=== PATIENT | female | born 1965 | race Caucasian/White ===

== ENCOUNTER → 2022-03-30 | Outpatient (CLI) | payer BC ==
--- NOTE | 2022-04-06 10:35 | MM ---
Reason for Exam: Screening (asymptomatic). Last mammogram was performed 1 year(s) and 8 month(s) ago. Patient History: Menarche at age 13. First Full-Term at age 23. Postmenopausal. Risk Values: Tracie 5 year model risk: 1.4%. NCI Lifetime model risk: 7.8%. Prior Study Comparison: 05/26/2017 Bilateral MG screening mammo w CAD - 2, [facility]. 07/15/2020 Bilateral MG 3D screening mammo w/cad, [facility]. Tissue Density: The breast tissue is heterogeneously dense. This may lower the sensitivity of mammography. Findings: Analyzed By CAD. Occasional scattered benign-appearing round calcifications bilaterally. Benign-appearing left axillary lymph nodes are redemonstrated. There is no suspicious group of microcalcifications or new suspicious mass in either breast. Overall Assessment: Benign, BI-RAD 2 Management: Screening Mammogram of both breasts in 1 year. A clinical breast exam by your physician is recommended on an annual basis and results should be correlated with mammographic findings. Electronically signed and approved by: Farshad Wilburn M.D.
== END | disposition home or self-care (01) ==
LOC: RADMAMWWP 12:35
PROVIDERS: ATTEND Family Medicine
DX: Z12.31 Encounter for screening mammogram for malignant neoplasm of breast (principal); R92.1 Mammographic calcification found on diagnostic imaging of breast
CPT/HCPCS: 77063; 77067

== ENCOUNTER → 2023-11-17 | Outpatient (CLI) | payer BC ==
--- NOTE | 2023-11-17 14:48 | MM ---
Reason for Exam: Screening (asymptomatic). Last mammogram was performed 1 year(s) and 8 month(s) ago. Patient History: Menarche at age 13. First Full-Term at age 23. Postmenopausal. Patient has history of breast feeding. Risk Values: Tracie 5 year model risk: 1.5%. NCI Lifetime model risk: 7.4%. Prior Study Comparison: 05/26/2017 Bilateral MG screening mammo w CAD - 2, [facility]. 07/15/2020 Bilateral MG 3D screening mammo w/cad, [facility]. 03/30/2022 Bilateral MG 3D screening mammo w/cad, [facility]. Tissue Density: The breast tissue is heterogeneously dense. This may lower the sensitivity of mammography. Findings: Analyzed By CAD. There is no suspicious group of microcalcifications or new suspicious mass. Overall Assessment: Negative, BI-RAD 1 Management: Screening Mammogram of both breasts in [address] [facility] will attempt to contact patient to return for supplemental views and ultrasound if indicated. Patient should continue monthly self-breast exams. A clinical breast exam by your physician is recommended on an annual basis. This exam should not preclude additional follow-up of suspicious palpable abnormalities. Note on Tracie scores and lifetime risk: 1. A Tracie score greater than 3% is considered moderate risk. If this is the case, consider specialist referral to assess eligibility for a risk reducing agent. 2. If overall lifetime risk for the development of breast cancer is 20% or higher, the patient may qualify for future screening with alternating mammogram and breast MRI. Electronically signed and approved by: Dennis Booker DO
== END | disposition home or self-care (01) ==
LOC: RADMAMWWP 11:21
PROVIDERS: ATTEND Family Medicine
DX: Z12.31 Encounter for screening mammogram for malignant neoplasm of breast (principal); Z78.0 Asymptomatic menopausal state
CPT/HCPCS: 77063; 77067

== ENCOUNTER 2024-07-01 12:43 | Day surgery (SDC) | payer BC ==
[~2024-07-01 12:43] MED LIST: LIDOCAINE 1% (10MG/ML) FOR IV START INTRADERMA PRN
[2024-07-01 13:08] VITALS: RESP 16; TEMP 98.4
[2024-07-01] MEDS: IV FLUID CONTINUATION 1,000 ML IV ONE (13:09)
[2024-07-01] MEDS: LACTATED RINGERS 1,000 ML IV SCH (13:15)
[2024-07-01] MEDS: ONDANSETRON 4 MG/2 ML VIAL IVP STA (13:25)
[2024-07-01] MEDS ORDERED: PROPOFOL 10 MG/ML 20 ML VIAL IV ONE (15:45)
--- NOTE | 2024-07-01 16:06 | P.GSHP ---
History of Present Illness H&P Date: 07/01/24 Chief Complaint: Colonoscopy screening c Is a 4-year-old female presents today for screening colonoscopy. Patient denies any significant GI complaints. Past Medical History Additional Past Medical History / Comment(s): SEASONAL ALLERGIES History of Any Multi-Drug Resistant Organisms: None Reported Additional Past Surgical History / Comment(s): COLONOSCOPY Past Anesthesia/Blood Transfusion Reactions: Postoperative Nausea & Vomiting (PONV) Smoking Status: Never smoker - Past Family History Mother Family Medical History: No Reported History Medications and Allergies Home Medications Medication Instructions Recorded Confirmed Type Cetirizine HCl [Zyrtec] 10 mg PO DAILY 06/27/24 07/01/24 History Allergies Allergy/AdvReac Type Severity Reaction Status Date / Time No Known Allergies Allergy Verified 07/01/24 13:07 Surgical - Exam Vital Signs Temp Pulse Resp BP Pulse Ox 98.4 F 80 16 141/64 98 07/01/24 13:07 07/01/24 13:07 07/01/24 13:07 07/01/24 13:07 07/01/24 13:07 - General well developed, well nourished, no distress - Eyes PERRL - ENT normal pinna - Neck no masses - Respiratory normal expansion - Cardiovascular Rhythm: regular - Abdomen Abdomen: soft, non tender Assessment and Plan Assessment: Will perform screening colonoscopy
--- NOTE | 2024-07-01 16:08 | P.OP ---
Date of Procedure: 07/01/24 Preoperative Diagnosis: Screening colonoscopy Postoperative Diagnosis: Internal/external hemorrhoids Diverticulosis Procedure(s) Performed: Colonoscopy Anesthesia: MAC Surgeon: Kvng Rivera Pathology: none sent Condition: stable Disposition: PACU Description of Procedure: The patient was placed on the endoscopy table in the lateral position. She received IV sedation. Digital rectal exams performed. There were internal/external hemorrhoids noted. The flexible colonoscope was then placed patient anus and passed throughout the entire colon. The ileocecal valve was visualized. The cecum, ascending and transverse colon appeared normal. In the descending sigmoid colon there was moderate diverticular changes. The scope was brought back to the rectum this appeared normal. Scope withdrawn through the anus and internal/external hemorrhoids were noted. Scope was then withdrawn from the patient.
[2024-07-01 16:48] VITALS: BP 160/68; PULSE 82
== END 2024-07-01 17:12 | disposition home or self-care (01) ==
LOC: ORWHC2ENDO 12:43
PROVIDERS: ATTEND Surgery
DX: Z12.11 Encounter for screening for malignant neoplasm of colon
CPT/HCPCS: 45378

== ENCOUNTER → 2024-11-29 | Outpatient (CLI) | payer BC ==
--- NOTE | 2024-12-02 08:27 | MM ---
Reason for Exam: Screening (asymptomatic). Last screening mammogram was performed 12 month(s) ago. Patient History: Menarche at age 13. First Full-Term at age 23. Postmenopausal. Patient has history of breast feeding. Risk Values: Tracie 5 year model risk: 1.5%. NCI Lifetime model risk: 7.2%. Prior Study Comparison: 07/15/2020 Bilateral MG 3D screening mammo w/cad, [facility]. 03/30/2022 Bilateral MG 3D screening mammo w/cad, [facility]. 11/17/2023 Bilateral MG 3D screening mammo w/cad, [facility]. Tissue Density: The breasts are heterogeneously dense, which may obscure small masses. Findings: Analyzed By CAD. There is no suspicious group of microcalcifications or new suspicious mass in either breast. Overall Assessment: Negative, BI-RAD 1 Management: Screening Mammogram of both breasts in 1 year. Patient should continue monthly self-breast exams. A clinical breast exam by your physician is recommended on an annual basis. This exam should not preclude additional follow-up of suspicious palpable abnormalities. Note on Tracie scores and lifetime risk: 1. A Tracie score greater than 3% is considered moderate risk. If this is the case, consider specialist referral to assess eligibility for a risk reducing agent. 2. If overall lifetime risk for the development of breast cancer is 20% or higher, the patient may qualify for future screening with alternating mammogram and breast MRI. [facility], , 12/02/2024 8:24 AM. Electronically signed and approved by: Bhavya Clifton M.D. Radiologist
== END | disposition home or self-care (01) ==
LOC: RADMAMWWP 15:48
PROVIDERS: ATTEND Family Medicine
DX: Z12.31 Encounter for screening mammogram for malignant neoplasm of breast (principal); R92.333 Mammographic heterogeneous density, bilateral breasts; Z78.0 Asymptomatic menopausal state
CPT/HCPCS: 77063; 77067